=== PATIENT | male | born 1935 | race Hispanic/Latino ===

== ENCOUNTER 2018-09-17 00:59 | Inpatient (IN) | payer MEDICARE ==
[~2018-09-17] VITALS: Ht 165.1 cm; Wt 89.8 kg
[2018-09-17] MEDS ORDERED: FUROSEMIDE 10 MG/ML 4ML VIAL ONE (01:05)
[2018-09-17] MEDS ORDERED: NITROGLYCERIN 1GM/1 INCH PACKET TD ONE (01:05)
[2018-09-17 01:26] LABS: BASOPHILS % (AUTO) 0.4 % (0.0-5.0); EOSINOPHILS % (AUTO) 1.2 % (0.0-8.0); HEMATOCRIT 47.4 % (42-54); LYMPHOCYTES % (AUTO) 9.6 % (21.0-51.0); MEAN CORPUSCULAR HEMOGLOBIN 29.4 pg (27.0-33.0); MEAN CORPUSCULAR HGB CONC 33.7 g/dL (32.0-36.0); MEAN CORPUSCULAR VOLUME 87.4 fL (79-99); MONOCYTES % (AUTO) 5.8 % (3.0-13.0); NUCLEATED RED BLOOD CELLS 0.1 % (0.0-0.19); PLATELET COUNT (AUTO) 198 K/uL (130-400); RED BLOOD CELL COUNT(AUTO) 5.43 MIL/uL (4.50-6.20); WHITE BLOOD COUNT (AUTO) 11.9 K/uL (4.8-10.8)
[2018-09-17 01:39] LABS: POTASSIUM 4.3 mmol/L (3.5-5.1)
[2018-09-17 01:41] LABS: ALBUMIN 3.5 g/dL (3.5-5.0); BILIRUBIN,TOTAL 0.7 mg/dL (0.2-1.0); TOTAL PROTEIN, SERUM 7.7 g/dL (6.0-8.3)
[2018-09-17 01:43] LABS: ABG BASE EXCESS 0.2 mmol/L (-2.0-3.0); ABG HCO3 25.8 mmol/L (21.0-28.0); ABG OXYGEN SATURATION 99.8 % (95.0-99.0); ABG PCO2 45 mmHg (35-48)
[2018-09-17 02:00] LABS: B-TYPE NATRIURETIC PEPTIDE 1290 pg/mL (0-100)
[2018-09-17] MEDS ORDERED: ASPIRIN 325 MG TABLET ONE (02:46)
[2018-09-17] MEDS ORDERED: ACETAMINOPHEN 325 MG TAB PO PRN ×2 (03:15)
[2018-09-17] MEDS ORDERED: ONDANSETRON HCL 4 MG/2 ML VIAL IV PRN (03:15)
[2018-09-17] MEDS: NITROGLYCERIN 1GM/1 INCH PACKET TD SCH ×4 (03:15→21:36)
[2018-09-17] MEDS ORDERED: HYDRALAZINE HCL 20 MG/ML VIAL IV PRN (03:15)
[2018-09-17 04:47] VITALS: BP 195/79
--- NOTE | 2018-09-17 05:30 | NUR ---
Received pt. from ER ,pt appears slightly short of breath upon transfer from stretcher to bed .Pt. is awake and coherent setswana speaking,no family around.
[2018-09-17 07:00] VITALS: BP 182/88
[2018-09-17] MEDS ORDERED: CHOL500050 PO (07:33)
[2018-09-17] MEDS ORDERED: METF500S7 PO (07:33)
[2018-09-17] MEDS ORDERED: AEC81 PO (07:33)
[2018-09-17] MEDS ORDERED: METO50TA18 PO (07:33)
[2018-09-17] MEDS ORDERED: DONE5TAB26 PO (07:33)
[2018-09-17] MEDS ORDERED: AZIT250T9 PO (07:33)
[2018-09-17] MEDS ORDERED: ACET650T9 PO (07:33)
--- NOTE | 2018-09-17 07:40 | NUR ---
Pt. remained stable ,denies chestpain or any discomfort at this time.
--- NOTE | 2018-09-17 07:45 | NUR ---
Bedside report given to incoming NOD using SBAR all questions answered.Pending to consult Dr. Vikas Montilla for elevated troponin and CHF.
[2018-09-17] MEDS: IPRATROPIUM/ALBUTEROL SULFATE 3 ML SOLUTION IH SCH ×4 (07:57→23:30)
--- NOTE | 2018-09-17 08:00 | NUR ---
ASSESSMENT ENCOUNTERED PT ASLEEP BUT AROUSEABLE, A&O TO NAME ONLY. PT IS UNABLE TO LAY FLAT AND BECOMES TACHYPNEIC, PT REPOSITIONED TO HIGH MORALES'S POSITION AND BREATHING IMPROVES. PT DENIES PAIN, DIZZINESS OR NAUSEA. PT IS UNABLE TO UTILIZE STRAWS AND DOES HAVE COUGH WITH ORAL INTAKE. SPEECH THERAPIST NOTIFIED. PT IN FULL VIEW OF RN STATION, SIDE RAILS UP. CALL LIGHT WITHIN REACH.
[2018-09-17] MEDS ORDERED: METOPROLOL TARTRATE 25 MG TAB PO SCH (09:00)
[2018-09-17] MEDS: ASPIRIN 325 MG TABLET PO SCH (09:27)
[2018-09-17] MEDS: FAMOTIDINE/PF 20 MG/2 ML VIAL IV SCH ×2 (09:27→21:36)
[2018-09-17] MEDS: FUROSEMIDE 10 MG/ML 4ML VIAL IVP SCH ×2 (09:28→21:36)
[2018-09-17] MEDS: ENOXAPARIN SODIUM 30 MG/0.3 ML SQ SCH ×2 (09:29→21:37)
[2018-09-17 11:00] VITALS: BP 181/88
--- NOTE | 2018-09-17 11:30 | NUR ---
DYSPHAGIA EVAL COMPLETED. +S/S OF ASPIRATION WITH THIN LIQUIDS. RECOMMEND REGULAR TEXTURE, NECTAR-THICK LIQUIDS; PILLS WHOLE WITH LIQUIDS. PATIENT INFORMATION: Pt IS AN 83 YEAR OLD MALE REFERRED FOR A BEDSIDE DYSPHAGIA EVAL SECONDARY TO COUGHING WHEN TAKING PILLS THIS AM. Pt COOPERATIVE DURING THE SESSION. Pt AAOX1 INDEPENDENTLY. Pt ADMITTED SECONDARY TO SHORTNESS OF BREATH, FLUID OVERLOAD, ELEVATED TROPIN. Pt HAS A PAST MEDICAL HISTORY SIGNIFICANT FOR HYPERTENSION, NON-INSULIN DEPENDENT DIABETES MELLITUS, CONGESTIVE HEART FAILURE, HYPERLIPIDEMIA, AND DEMENTIA. EVALUATION: Pt PRESENTS WITH MILD-MODERATE PHARYNGEAL DYSPHAGIA CAUSED BY DECREASED LARYNGEAL ELEVATION/EXCURSION AND DELAYED PHARYNGEAL RESPONSE TIME E/B +S/S OF THIN LIQUIDS VIA CUP SIP AND STRAW SIP. Pt WITH NO S/S OF ASPIRATION WITH NECTAR-THICK LIQUIDS. RECOMMENDATIONS: 1. REGULAR TEXTURE, NECTAR-THICK LIQUIDS; PILLS WHOLE WITH LIQUIDS. 2. COMPENSATORY STRATEGIES: *SEATED AT 90 DEGREES *SLOW RATE *NO STRAW *CHANGE IN TEXTURE TO ABOVE STATED G-CODES SWALLOWING: [id number] Addendum: 09/17/18 at 1410 by JOEY ASHER Amended: Links added.
--- NOTE | 2018-09-17 14:15 | NUR ---
DC PLAN VISITED WITH PATIENT. PATIENT LIVES WITH SPOUSE. INDEPENDENT ABLE TO PERFORM SOME ADL'S. PATIENT HAS PROVIDER 18 HRS. WHEEL CHAIR AT HOME. WALKS VERY LITTLE AT HOME. FEELS SAFE TO RETURN HOME. PATIENT PROVIDER IS MARIA DEL ROSARIO LILLYNANDEZ [phone]. Addendum: 09/17/18 at 1417 by JOE KO RN CM Amended: Links added.
--- NOTE | 2018-09-17 15:14 | NUR ---
RD Notification Patient with fluid overload. Patient with TRAVEL OCCUPATIONAL THERAPIST at time of visit. Patient with +S/S aspiration as per TRAVEL OCCUPATIONAL THERAPIST and rec NTL. Patient with 60gm CC diet in place; Rec to add Heart Healthy modifier secondary to Hx CHF. Patient LBM unavailable. Fluid retention status not available at time of screen. Patient monitored labs: Troponin 1.76, Glu 198, BUN 23, Alb 3.5. RD to continue to monitor. Please notify RD as nutritional concerns arise. Thank you. Addendum: 09/17/18 at [address] Amended: Links added.
[2018-09-17 16:00] VITALS: BP 195/85
[2018-09-17 19:00] VITALS: BP 131/84
[2018-09-17] MEDS ORDERED: LORAZEPAM 2 MG/ML 1 ML VIAL ONE (21:30)
[2018-09-17] MEDS ORDERED: LORAZEPAM 2 MG/ML 1 ML VIAL IVP PRN (21:30)
--- NOTE | 2018-09-17 21:30 | NUR ---
Pt. pulled his catheter and noted to be combative and confused, is at bedside .Immediately went to check on pt. and redirected him but pt. is very anxious and wanting to get out of bed.ELROY Welch happened to be present and went to speak to pt. Pt. continued to be confused .Received order to place pt. on one to one.Clinical Pharmacy Manager notified about the new order and informed that is here but left the room because she is unable to handle the situation with her . .
[2018-09-17] MEDS: METOPROLOL TARTRATE 25 MG TAB PO SCH (21:36)
[2018-09-17] MEDS: SIMVASTATIN 20 MG TABLET PO SCH (21:37)
[2018-09-17 23:00] VITALS: BP 124/85
--- NOTE | 2018-09-18 01:00 | NUR ---
Pt. has calm down,resting quietly at this time. came back to the room .
[2018-09-18 03:00] VITALS: BP 163/61
[2018-09-18] MEDS: NITROGLYCERIN 1GM/1 INCH PACKET TD SCH ×3 (03:48→20:36)
--- NOTE | 2018-09-18 04:00 | NUR ---
Pt. wakes up and trying to remove mittens and getting out of bed.Pt. is anxious at this time.Ativan 0.5mg IV given as ordered.V/S stable.Will continue to monitor pt.
[2018-09-18 04:01] LABS: HEMATOCRIT 44.2 % (42-54); MEAN CORPUSCULAR HEMOGLOBIN 29.1 pg (27.0-33.0); MEAN CORPUSCULAR HGB CONC 34.2 g/dL (32.0-36.0); MEAN CORPUSCULAR VOLUME 85.2 fL (79-99); PLATELET COUNT (AUTO) 193 K/uL (130-400); RED BLOOD CELL COUNT(AUTO) 5.19 MIL/uL (4.50-6.20); RED CELL DISTRIBUTION WIDTH 13.8 % (11.0-15.5); WHITE BLOOD COUNT (AUTO) 14.1 K/uL (4.8-10.8)
--- NOTE | 2018-09-18 04:03 | NUR ---
Urbina catheter is intact and in placed ,draining well.
[2018-09-18 04:35] LABS: B-TYPE NATRIURETIC PEPTIDE 1590 pg/mL (0-100)
[2018-09-18 05:07] LABS: HEMOGLOBIN A1C 7.1 % (4.0-6.0)
[2018-09-18 05:16] LABS: ALBUMIN 3.1 g/dL (3.5-5.0); CREATININE 0.9 mg/dL (0.5-1.5); MAGNESIUM 1.8 mg/dL (1.80-2.40); PHOSPHORUS 3.9 mg/dL (2.5-4.9); POTASSIUM 3.6 mmol/L (3.5-5.1)
[2018-09-18 05:39] LABS: TROPONIN I 1.86 ng/mL (0.00-0.06)
[2018-09-18] MEDS: IPRATROPIUM/ALBUTEROL SULFATE 3 ML SOLUTION IH SCH ×3 (06:06→18:58)
[2018-09-18] MEDS: INSULIN HUMULIN R 100 UNIT/ML 3ML SQ SCH ×4 (06:09→20:47)
[2018-09-18 06:51] VITALS: BP 140/69
[2018-09-18] MEDS: METOPROLOL TARTRATE 25 MG TAB PO SCH ×2 (09:00→20:35)
[2018-09-18] MEDS: ASPIRIN 325 MG TABLET PO SCH (10:38)
[2018-09-18] MEDS: FUROSEMIDE 10 MG/ML 4ML VIAL IVP SCH ×2 (10:38→20:35)
[2018-09-18] MEDS: FAMOTIDINE/PF 20 MG/2 ML VIAL IV SCH ×2 (10:38→20:35)
[2018-09-18] MEDS: ENOXAPARIN SODIUM 30 MG/0.3 ML SQ SCH ×2 (10:39→20:37)
[2018-09-18 10:56] VITALS: BP 149/80
[2018-09-18] MEDS: LEVOFLOXACIN 500 MG/D5W 100 ML 100 ML IV SCH (12:25)
--- NOTE | 2018-09-18 13:07 | NUR ---
MANUELA. TREATMENT/FOLLOW-UP NOT COMPLETED SECONDARY TO Pt SLEEPING WITH DIFFICULTY TO AROUSE. NURSE REPORTS PT WAS GIVEN ATIVAN EARLIER IN THE DAY AND HAS NOT BEEN ABLE TO AWAKEN TO PARTICIPATE IN P.O. RECOMMEND CONTINUED REGULAR TEXTURE, NECTAR-THICK LIQUIDS WHEN Pt IS ALERT AND IS ABLE TO PARTICIPATE IN P.O. BIOLOGICAL AIDE WILL FOLLOW -UP WITH PATIENT TOMORROW. Addendum: 09/18/18 at 1312 by JOHN ROY [facility] ST Amended: Links added.
[2018-09-18 15:58] VITALS: BP 100/62
[2018-09-18] MEDS: METFORMIN HCL 500 MG TAB.SR.24H PO SCH (17:21)
[2018-09-18 19:04] VITALS: BP 150/78
[2018-09-18] MEDS: SIMVASTATIN 20 MG TABLET PO SCH (20:36)
[2018-09-18] MEDS: MORPHINE SULFATE 2 MG/ML 1ML SYG IV PRN (20:39)
[2018-09-18 21:48] LABS: APPEARANCE,URINE CLOUDY (CLEAR); BILIRUBIN,URINE SMALL (NEGATIVE); COLOR,URINE YELLOW (YELLOW); GLUCOSE, URINE (UA) NEGATIVE (NEGATIVE); KETONES,URINE NEGATIVE (NEGATIVE); LEUKOCYTE ESTERASE ,URINE NEGATIVE (NEGATIVE); NITRATE,URINE NEGATIVE (NEGATIVE); OCCULT BLOOD,URINE LARGE (NEGATIVE); PROTEIN,URINE 30 mg/dL (NEGATIVE)
[2018-09-18 21:56] LABS: BACTERIA,URINE Few /HPF (None Seen); RBC,URINE 26-50 /HPF (0-1)
[2018-09-18 21:57] LABS: AMORPHOUS SEDIMENT,UR Few /LPF (None Seen); MUCUS,URINE Few LPF (None Seen); SQUAMOUS EPITHELIAL CELL,UR Few /HPF (0-2)
[2018-09-18 23:26] VITALS: BP 136/68
[2018-09-19] MEDS: IPRATROPIUM/ALBUTEROL SULFATE 3 ML SOLUTION IH SCH ×2 (00:02→08:50)
[2018-09-19] MEDS: NITROGLYCERIN 1GM/1 INCH PACKET TD SCH (03:29)
[2018-09-19 03:32] VITALS: BP 117/58
[2018-09-19] MEDS: INSULIN HUMULIN R 100 UNIT/ML 3ML SQ SCH ×4 (05:39→20:45)
[2018-09-19 08:07] VITALS: BP 138/80
[2018-09-19] MEDS: METOPROLOL TARTRATE 25 MG TAB PO SCH ×2 (09:34→20:43)
[2018-09-19] MEDS: ASPIRIN 325 MG TABLET PO SCH (09:34)
[2018-09-19] MEDS: METFORMIN HCL 500 MG TAB.SR.24H PO SCH ×2 (09:34→17:07)
[2018-09-19] MEDS: FUROSEMIDE 10 MG/ML 4ML VIAL IVP SCH ×2 (09:36→20:42)
[2018-09-19] MEDS: FAMOTIDINE/PF 20 MG/2 ML VIAL IV SCH ×2 (09:36→20:42)
[2018-09-19] MEDS: ENOXAPARIN SODIUM 30 MG/0.3 ML SQ SCH ×2 (09:38→20:42)
[2018-09-19] MEDS ORDERED: IPRATROPIUM/ALBUTEROL SULFATE 3 ML SOLUTION IH PRN (10:00)
[2018-09-19 10:28] LABS: HEMATOCRIT 41.3 % (42-54); MEAN CORPUSCULAR HEMOGLOBIN 29.1 pg (27.0-33.0); MEAN CORPUSCULAR HGB CONC 33.4 g/dL (32.0-36.0); MEAN CORPUSCULAR VOLUME 87.2 fL (79-99); PLATELET COUNT (AUTO) 197 K/uL (130-400); RED BLOOD CELL COUNT(AUTO) 4.73 MIL/uL (4.50-6.20); RED CELL DISTRIBUTION WIDTH 13.8 % (11.0-15.5); WHITE BLOOD COUNT (AUTO) 10.5 K/uL (4.8-10.8)
[2018-09-19 10:39] LABS: CREATININE 1.3 mg/dL (0.5-1.5); PHOSPHORUS 4.2 mg/dL (2.5-4.9); POTASSIUM 3.5 mmol/L (3.5-5.1)
[2018-09-19 11:02] LABS: B-TYPE NATRIURETIC PEPTIDE 214 pg/mL (0-100)
[2018-09-19 11:59] VITALS: BP 116/63
[2018-09-19] MEDS: LEVOFLOXACIN 500 MG/D5W 100 ML 100 ML IV SCH (12:17)
[2018-09-19] MEDS: ISOSORBIDE MONO 30MG TAB SR PO SCH (12:17)
--- NOTE | 2018-09-19 13:43 | NUR ---
FOLLOW UP COMPLETED. Pt TOLERATING CURRENT REGULAR TEXTURE, NECTAR-THICK LIQUIDS WITH NO S/S OF ASPIRATION. RECOMMEND CONTINUED REGULAR TEXTURE, NECTAR-THICK LIQUIDS. STAFF NUCLEAR WEAPONS OFFICER WILL CONTINUE TO FOLLOW Pt. Addendum: 09/19/18 at 1346 by JOHN ROY, SPT ST Amended: Links added.
[2018-09-19 15:30] VITALS: BP 136/67
[2018-09-19] MEDS: SIMVASTATIN 20 MG TABLET PO SCH (20:43)
[2018-09-19 23:00] VITALS: BP 177/75
[2018-09-20] MEDS: MORPHINE SULFATE 2 MG/ML 1ML SYG IV PRN (03:12)
[2018-09-20 03:18] VITALS: BP 155/73
[2018-09-20 03:43] LABS: MEAN CORPUSCULAR HEMOGLOBIN 29.2 pg (27.0-33.0); MEAN CORPUSCULAR HGB CONC 33.8 g/dL (32.0-36.0); MEAN CORPUSCULAR VOLUME 86.5 fL (79-99); PLATELET COUNT (AUTO) 195 K/uL (130-400); RED BLOOD CELL COUNT(AUTO) 4.63 MIL/uL (4.50-6.20); RED CELL DISTRIBUTION WIDTH 13.6 % (11.0-15.5); WHITE BLOOD COUNT (AUTO) 9.2 K/uL (4.8-10.8)
[2018-09-20 04:07] LABS: CREATININE 1.2 mg/dL (0.5-1.5); POTASSIUM 4.1 mmol/L (3.5-5.1)
[2018-09-20 04:12] LABS: B-TYPE NATRIURETIC PEPTIDE 184 pg/mL (0-100)
[2018-09-20] MEDS: INSULIN HUMULIN R 100 UNIT/ML 3ML SQ SCH ×3 (06:41→16:30)
[2018-09-20 07:58] VITALS: BP 157/74
[2018-09-20] MEDS: ISOSORBIDE MONO 30MG TAB SR PO SCH (09:08)
[2018-09-20] MEDS: METOPROLOL TARTRATE 25 MG TAB PO SCH (09:08)
[2018-09-20] MEDS: METFORMIN HCL 500 MG TAB.SR.24H PO SCH (09:08)
[2018-09-20] MEDS: ASPIRIN 325 MG TABLET PO SCH (09:08)
[2018-09-20] MEDS: FAMOTIDINE/PF 20 MG/2 ML VIAL IV SCH (09:11)
[2018-09-20] MEDS: ENOXAPARIN SODIUM 30 MG/0.3 ML SQ SCH (09:12)
[2018-09-20] MEDS ORDERED: LACTULOSE 20 GM/30 ML UDCUP PO SCH (09:30)
[2018-09-20] MEDS ORDERED: FUROSEMIDE 20 MG TABLET PO SCH (09:30)
[2018-09-20] MEDS: LEVOFLOXACIN 500 MG/D5W 100 ML 100 ML IV SCH (11:03)
[2018-09-20 11:43] VITALS: BP 151/48
[2018-09-20] MEDS ORDERED: IPRA3AMP24 IH (12:15)
[2018-09-20] MEDS ORDERED: Isosorbide Mono 30MG Tab Sr PO (12:15)
[2018-09-20] MEDS ORDERED: FURO20TA6 PO (12:15)
[2018-09-20] MEDS ORDERED: LEVO500T2 PO (12:15)
--- NOTE | 2018-09-20 16:27 | NUR ---
DC PLAN FAMILY NOW WANTS TO TAKE PATIENT HOME. DC HOME DISPO DONE. AWARE. LET FACILITY REP KNOW WELL. Addendum: 09/20/18 at 1628 by JOE KO RN CM Amended: Links added.
[2018-09-20 17:00] VITALS: BP 125/67
[2018-09-24] MEDS ORDERED: FUROSEMIDE 10 MG/ML 2ML VIAL IV SCH (09:00)
== END 2018-09-20 18:42 | disposition home or self-care (01) | DRG 280 ==
LOC: EDH 00:59 → EDHIP 02:25 → 2AH 04:29
PROVIDERS: ADMIT Internal Medicine; ATTEND Internal Medicine
PROC: 5A09357 Assistance with Respiratory Ventilation, Less than 24 Consecutive Hours, Continuous Positive Airway Pressure (ICD-10-PCS; principal; 2018-09-17)
DX: I21.A1 Myocardial infarction type 2 (principal); J96.01 Acute respiratory failure with hypoxia; I50.43 Acute on chronic combined systolic (congestive) and diastolic (congestive) heart failure; I11.0 Hypertensive heart disease with heart failure; E11.9 Type 2 diabetes mellitus without complications; D72.829 Elevated white blood cell count, unspecified; E78.2 Mixed hyperlipidemia; Z66 Do not resuscitate; F03.90 Unspecified dementia, unspecified severity, without behavioral disturbance, psychotic disturbance, mood disturbance, and anxiety; Z91.19 Patient's noncompliance with other medical treatment and regimen; Z79.84 Long term (current) use of oral hypoglycemic drugs
CPT/HCPCS: 36415; 36600; 71045; 80048; 80053; 80061; 81001; 82040; 82550; 82803; 82948; 83036; 83605; 83735; 83874; 83880; 84100; 84484; 85025; 85027; 87040; 87088; 92610; 93005; 93306; 94640; 94660; 94664; 97039; 99291; G0378; J0360; J1650; J1815; J1940; J1956; J2060; J3490

== ENCOUNTER → 2018-10-21 | Outpatient (CLI) | payer MEDICARE ==
[~2018-10-21] VITALS: Ht 154.9 cm; Wt 80.7 kg
[~2018-10-21] MED LIST: ACET650T9 PO; AEC81 PO; CHOL500050 PO; DONE5TAB26 PO; FURO20TA6 PO; IPRA3AMP24 IH; Isosorbide Mono 30MG Tab Sr PO; LEVO500T2 PO; METF500S7 PO; METO50TA18 PO; REGADENOSON 0.4 MG/5 ML PF SYG IVP SCH
== END | disposition home or self-care (01) ==
LOC: EDBD → SHCH 09:14
PROVIDERS: ATTEND Internal Medicine Cardiovascular Disease
DX: I50.42 Chronic combined systolic (congestive) and diastolic (congestive) heart failure (principal); I25.2 Old myocardial infarction
CPT/HCPCS: 78452; 93017; 96374; A9500 ×2; J2785

== ENCOUNTER 2018-11-18 07:19 | Inpatient (IN) | payer MEDICARE ==
[2018-11-15 10:03] VITALS: BP 192/84
[2018-11-15 10:06] LABS: APPEARANCE,URINE Clear (CLEAR); BASOPHILS % (AUTO) 0.5 % (0.0-5.0); BILIRUBIN,URINE Negative (NEGATIVE); COLOR,URINE Yellow (YELLOW); EOSINOPHILS % (AUTO) 3.6 % (0.0-8.0); GLUCOSE, URINE (UA) Negative (NEGATIVE); HEMATOCRIT 41.1 % (42-54); KETONES,URINE Negative (NEGATIVE); LEUKOCYTE ESTERASE ,URINE Negative (NEGATIVE); LYMPHOCYTES % (AUTO) 29.3 % (21.0-51.0); MEAN CORPUSCULAR HEMOGLOBIN 30.1 pg (27.0-33.0); MEAN CORPUSCULAR HGB CONC 34.6 g/dL (32.0-36.0); MEAN CORPUSCULAR VOLUME 86.9 fL (79-99); NEUTROPHILS % (AUTO) 59.6 % (40.0-77.0); NITRATE,URINE Negative (NEGATIVE); NUCLEATED RED BLOOD CELLS 0.1 % (0.0-0.19); OCCULT BLOOD,URINE Negative (NEGATIVE); PLATELET COUNT (AUTO) 156 K/uL (130-400); PROTEIN,URINE Negative (NEGATIVE); RED BLOOD CELL COUNT(AUTO) 4.73 MIL/uL (4.50-6.20); RED CELL DISTRIBUTION WIDTH 15.4 % (11.0-15.5); UROBILINOGEN,URINE 0.2 mg/dL (0.2-1.0)
[2018-11-15 10:15] LABS: CREATININE 0.8 mg/dL (0.5-1.5)
[2018-11-15 10:18] LABS: INR 1.01 (0.85-1.15); PARTIAL THROMBOPLASTIN TIME 27.5 SEC (26.3-35.5); PROTHROMBIN TIME 10.6 SEC (9.6-11.6)
[~2018-11-18] VITALS: Ht 162.6 cm; Wt 83.6 kg
[2018-11-18] VITALS (23 sets, daily range): BP systolic 93–228; BP diastolic 43–114
[~2018-11-18 07:19] MED LIST changes: -ACET650T9 PO; +ATOR40TA69 PO; -DONE5TAB26 PO; +HYDR-4153 PO; -IPRA3AMP24 IH; +ISOS30TA11 PO; -LEVO500T2 PO; +MEMA5TAB15 PO; +METF-444 PO; -METF500S7 PO; -METO50TA18 PO; -REGADENOSON 0.4 MG/5 ML PF SYG IVP SCH
--- NOTE | 2018-11-18 07:52 | NUR ---
paged Doctor Jamila due to patient blood pressure 228/85 to right arm and 237/132 to left arm, pt stable no chest pain, calm, no distress noted. Will continue to monitor, pending callback.
[2018-11-18] MEDS ORDERED: HYDRALAZINE HCL 20 MG/ML VIAL IV SCH (08:15)
[2018-11-18] MEDS ORDERED: SODIUM CHLORIDE 0.9% 1000ML 1,000 ML IV ONE (08:22)
[2018-11-18] MEDS ORDERED: LIDOCAINE HCL 2% 20ML ONE (14:37)
[2018-11-18] MEDS ORDERED: BIVALIRUDIN 250 MG/VIAL IV ONE (14:37)
[2018-11-18] MEDS ORDERED: NITROGLYCERIN 5 MG/ML 10 ML VIAL IV ONE (14:37)
[2018-11-18] MEDS ORDERED: IOHEXOL 350 MG/ML 100ML INFUS..BTL IV ONE (14:37)
[2018-11-18] MEDS ORDERED: IOHEXOL-350 50ML VIAL IV ONE (14:37)
[2018-11-18] MEDS ORDERED: LABETALOL HCL 5 MG/ML 20ML VIAL IV ONE (15:23)
[2018-11-18] MEDS ORDERED: ATROPINE SULFATE 0.1 MG/ML 10 ML SYG IVP ONE (15:27)
[2018-11-18] MEDS ORDERED: NITROGLYCERIN 50 MG/D5% WATER 1 BOT ONE (15:37)
[2018-11-18] MEDS ORDERED: SODIUM CHLORIDE 0.9% 1000ML 1,000 ML IV SCH (15:41)
[2018-11-18] MEDS ORDERED: NITROGLYCERIN 50 MG/D5% WATER 250 BOT IV PRN (15:45)
[2018-11-18] MEDS ORDERED: DEXTROSE 50%-WATER 50 ML DISP.SYRIN IV PRN (15:45)
[2018-11-18] MEDS ORDERED: GLUCAGON 1MG KIT 1 MG ML IM PRN (15:45)
--- NOTE | 2018-11-18 16:10 | NUR ---
POST PROCEDURE ASSESSMENT Received to CVR pending ICU bed assignment. Pt is post [facility] - bedrest post procedure - reenforced activity restrictions. Upon arrival, pt denied chest pain, pressure or tightness. Denied SOB. On room air - clear breath sounds throughout. Skin is cool, dry. PIV to patent. Received pt on IV NTG gtt @15mcg/min - will titrate to effect as ordered. SB on tele - second degree AV block. VS as recorded. Abd round, soft with active bowel sounds. Denies nausea. Due to void post procedure. Dry procedural drsg in place to right groin. No evidence of bleeding, oozing or hematoma. Denies pain or tenderness to site. Pedal pulses are palpable bilaterally. BLE's warm to touch. Assessment as recorded.
--- NOTE | 2018-11-18 16:44 | NUR ---
MD VISIT in to see pt in consultation. Pt's daughter at bedside at time of MD visit. Discussed treatment options, including surgical revascularization. According to pt's daughter, pt had stated that he would not want surgical intervention but will speak to him and additional family members. MD stated he will revisit pt in AM. Questions addressed by .
[2018-11-18] MEDS: MEMANTINE HCL 5 MG TABLET PO SCH (21:09)
[2018-11-19] VITALS (40 sets, daily range): BP systolic 107–166; BP diastolic 51–88
[2018-11-19] MEDS: MEMANTINE HCL 5 MG TABLET PO SCH (08:26)
[2018-11-19] MEDS ORDERED: HYDRALAZINE HCL 25 MG TABLET PO SCH ×2 (09:00→14:00)
[2018-11-19] MEDS ORDERED: FUROSEMIDE 20 MG TABLET PO SCH (09:00)
[2018-11-19] MEDS ORDERED: ASPIRIN 81 MG EC TAB PO SCH (09:00)
[2018-11-19] MEDS ORDERED: ATORVASTATIN CALCIUM 40 MG TABLET PO SCH (09:00)
[2018-11-19] MEDS ORDERED: CHOLECALCIFEROL 50000 UNIT PO SCH (09:00)
[2018-11-19] MEDS ORDERED: ISOSORBIDE MONO 60 MG TAB.SR PO SCH (09:30)
[2018-11-19] MEDS ORDERED: LOSARTAN 50 MG TABLET PO SCH (10:40)
--- NOTE | 2018-11-19 13:15 | NUR ---
nitro drip turned off at this time
--- NOTE | 2018-11-19 14:25 | NUR ---
patient ambulated around the entire 2nd floor with no issues; patient states he feels great at this time
--- NOTE | 2018-11-19 19:05 | NUR ---
patient discharged home with new prescriptions; piv removed;daughter at bedside and given discharge instructions; right femoral site clean, dry and intact; site care instructions given
--- NOTE | 2018-11-20 08:54 | NUR ---
DC PLAN PATIENT DISCHARGED HOME ALREADY GONE. NO NEEDS VERBALIZED BY NURSING STAFF. Addendum: 11/20/18 at 0858 by JOE KO RN CM Amended: Links added.
[2018-11-20] MEDS ORDERED: LOSARTAN 50 MG TABLET PO SCH (09:00)
== END 2018-11-19 19:11 | disposition home or self-care (01) | DRG 287 ==
LOC: DAH 07:19 → DAHIP 07:20 → OBSVTOIN 07:20 → 2CH 16:16
PROVIDERS: ADMIT Internal Medicine Cardiovascular Disease; ATTEND Internal Medicine Cardiovascular Disease
PROC: 4A023N7 Measurement of Cardiac Sampling and Pressure, Left Heart, Percutaneous Approach (ICD-10-PCS; principal; 2018-11-18)
PROC: B2111ZZ Fluoroscopy of Multiple Coronary Arteries using Low Osmolar Contrast (ICD-10-PCS; 2018-11-18)
PROC: B2151ZZ Fluoroscopy of Left Heart using Low Osmolar Contrast (ICD-10-PCS; 2018-11-18)
DX: I25.10 Atherosclerotic heart disease of native coronary artery without angina pectoris (principal); I50.42 Chronic combined systolic (congestive) and diastolic (congestive) heart failure; F32.9 Major depressive disorder, single episode, unspecified; F03.90 Unspecified dementia, unspecified severity, without behavioral disturbance, psychotic disturbance, mood disturbance, and anxiety; I11.0 Hypertensive heart disease with heart failure; I44.1 Atrioventricular block, second degree
CPT/HCPCS: 36415; 71045; 80048; 81003; 82948; 85025; 85610; 85730; 93005; 93458; 99156; A4606; C1760; C1894; G0378; J0360; J0461; J0583; J1644; J3490; J7030; Q9967

== ENCOUNTER 2019-04-04 10:47 | Day surgery (SDC) | payer MEDICARE ==
[2019-04-02 12:32] LABS: BASOPHILS % (AUTO) 0.5 % (0.0-5.0); EOSINOPHILS % (AUTO) 2.4 % (0.0-8.0); HEMATOCRIT 38.1 % (42-54); LYMPHOCYTES % (AUTO) 23.4 % (21.0-51.0); MEAN CORPUSCULAR HGB CONC 34.6 g/dL (32.0-36.0); MEAN CORPUSCULAR VOLUME 89.8 fL (79-99); MONOCYTES % (AUTO) 6.6 % (3.0-13.0); NEUTROPHILS % (AUTO) 67.1 % (40.0-77.0); PLATELET COUNT (AUTO) 169 K/uL (130-400); RED BLOOD CELL COUNT(AUTO) 4.24 MIL/uL (4.50-6.20); RED CELL DISTRIBUTION WIDTH 14.2 % (11.0-15.5); WHITE BLOOD COUNT (AUTO) 8.3 K/uL (4.8-10.8)
[2019-04-02 12:38] VITALS: BP 148/61
[2019-04-02 12:39] LABS: CREATININE 1.4 mg/dL (0.5-1.5); POTASSIUM 5.1 mmol/L (3.5-5.1)
[2019-04-02 12:42] LABS: PARTIAL THROMBOPLASTIN TIME 26.6 SEC (26.3-35.5); PROTHROMBIN TIME 10.5 SEC (9.6-11.6)
--- NOTE | 2019-04-03 11:12 | NUR ---
LABS ABNORMAL LABS REPORTED TO [facility] PARR WITH DR. DODD ,NO FURTHER ORDERS GIVEN , OK TO PROCEED WITH PROCEDURE
[~2019-04-04] VITALS: Ht 165.1 cm; Wt 80.7 kg
[2019-04-04] VITALS (8 sets, daily range): BP systolic 114–151; BP diastolic 54–67
[~2019-04-04 10:47] MED LIST changes: +AMLO5TAB9 PO; +CHLOROTHIAZIDE PO; +CLOP75TA32 PO; -FURO20TA6 PO; -ISOS30TA11 PO; +ISOS30TA6 PO; -Isosorbide Mono 30MG Tab Sr PO; +LOSA100T58 PO; +SODIUM CHLORIDE 0.9% 500ML 500 ML IV SCH
[2019-04-04] MEDS ORDERED: SODIUM CHLORIDE 0.9% 1000ML 1,000 ML IV ONE (10:55)
[2019-04-04] MEDS ORDERED: CHLORTHALID PO (11:10)
--- NOTE | 2019-04-04 12:55 | NUR ---
PROCEDURE PT TAKEN TO ALGOLOGY TEACHER VIA BED FOR SCHEDULED PROCEDURE. DAUGHTER AT BEDSIDE.
[2019-04-04] MEDS ORDERED: CEFAZOLIN SODIUM 1 GM VIAL ONE (13:12)
[2019-04-04] MEDS ORDERED: LIDOCAINE HCL 1% MDV 50ML VIAL ONE (13:12)
[2019-04-04] MEDS ORDERED: BUPIVACAINE/PF 0.25% 10ML VIAL IJ ONE (13:12)
[2019-04-04] MEDS ORDERED: MIDAZOLAM HCL 1 MG/ML 2ML VIAL ONE (13:28)
[2019-04-04] MEDS ORDERED: FENTANYL CITRATE PF 50 MCG/1 ML 2ML VIAL ONE (13:28)
--- NOTE | 2019-04-04 14:30 | NUR ---
POST RECEIVED PATIENT FROM COMPUTER HARDWARE DESIGNER, S/P DUAL CHAMBER PACEMAKER PLACMENT TO LEFT UPPER CHEST. DRESSING TO SITE DRY AND INTACT, ICE PACK APPLIED TO SITE. NO BLEEDING OR HEMATOMA TO SITE. ARM SLING IN PLACE. PT/ DAUGHTER INSTRUCTED TO KEEP TO BEDREST . PLAN OF CARE DISCUSS WITH PATIENT/ DAUGHTER,
[2019-04-04] MEDS ORDERED: ACETAMINOPHEN 325 MG TAB PO PRN ×2 (15:15)
--- NOTE | 2019-04-04 16:47 | NUR ---
REPORT REPORT GIVEN TO PIOTR FLORENCE RN TO RESUME CARE OF PATIENT . PATIENT LYING IN BED,NO DISTRESS NOTED. LEFT UPPER CHEST DRESSING DRY AND INTACT . ARM SLING IN PLACE. FAMILY AT BEDSIDE
--- NOTE | 2019-04-04 17:50 | NUR ---
PT STABLE, NO C/O PAIN TO PACER SITE. DRESSING TO UPPER LEFT CHEST HAS SCANT AMOUNT OF BLEEDING. NO ACTIVE BLEEDING OR HEMATOMA. POST CARTE INSTRUCTIONS GIVEN TO DAUGHTER AND , BOTH VERBALIZED INSTRUCTIONS. EDUCATION OF SLING USE ALSO GIVEN. DAUGHTER GIVE PRESCRIPTION. PT DRESSED, IV D/C, PT TAKEN OUT IN WHEELCHAIR TO CAR, DRIVEN HOME BY DAUGHTER.
== END 2019-04-04 17:50 | disposition home or self-care (01) ==
LOC: DAH 10:47
PROVIDERS: ATTEND Internal Medicine Cardiovascular Disease
DX: I44.1 Atrioventricular block, second degree (principal); R00.1 Bradycardia, unspecified; E78.5 Hyperlipidemia, unspecified; I50.22 Chronic systolic (congestive) heart failure; I11.0 Hypertensive heart disease with heart failure; F32.9 Major depressive disorder, single episode, unspecified; F03.90 Unspecified dementia, unspecified severity, without behavioral disturbance, psychotic disturbance, mood disturbance, and anxiety; I25.10 Atherosclerotic heart disease of native coronary artery without angina pectoris; Z79.84 Long term (current) use of oral hypoglycemic drugs; Z79.899 Other long term (current) drug therapy
CPT/HCPCS: 33208; 36415; 71045; 80048; 82948 ×2; 85025; 85610; 85730; 93005; A4215; A4216; A4221; A4222; A4223 ×3; A4606; C1785; C1898 ×2; J0690; J2250; J3010; J3490 ×2; J7030; 99156; 99157

== ENCOUNTER 2019-04-06 10:40 | Emergency (ER) | payer MEDICARE ==
[~2019-04-06 10:40] MED LIST changes: -CHLOROTHIAZIDE PO; +CHLORTHALID PO; -SODIUM CHLORIDE 0.9% 500ML 500 ML IV SCH
== END 2019-04-06 12:02 | disposition home or self-care (01) ==
LOC: EDH 10:40
DX: Z48.01 Encounter for change or removal of surgical wound dressing (principal); E11.9 Type 2 diabetes mellitus without complications; I10 Essential (primary) hypertension; Z96.89 Presence of other specified functional implants